=== PATIENT | female | born 1990 | race Caucasian/White ===

== ENCOUNTER 2016-07-23 09:40 | Inpatient (IN) | payer BC | END 2016-07-23 16:07 | disposition short-term general hospital (02) | DRG 765 | LOC: LDRIP 09:40 → LDROP 09:40 → SURG 12:30 → LDRIP 12:30 | PROVIDERS: ADMIT Family Medicine | PROC: 10D00Z1 Extraction of Products of Conception, Low, Open Approach (ICD-10-PCS; principal; 2016-07-23) | DX: O76 Abnormality in fetal heart rate and rhythm complicating labor and delivery (principal); O60.14X0 Preterm labor third trimester with preterm delivery third trimester, not applicable or unspecified; F32.9 Major depressive disorder, single episode, unspecified; O99.334 Smoking (tobacco) complicating childbirth; F17.210 Nicotine dependence, cigarettes, uncomplicated; Z3A.35 35 weeks gestation of pregnancy; Z37.0 Single live birth | CPT/HCPCS: J1580; J1885; J2270; J2405; J2590; J2765; J3010 ==